=== PATIENT | female | born 1970 | race Caucasian/White ===

== ENCOUNTER → 2016-12-25 | Outpatient (CLI) | payer BC ==
--- NOTE | 2016-12-25 10:39 | KCIC ---
DATE: 12/25/2016 EXAM: MAMMO CHANO SCREENING BILATERAL HISTORY: Routine screening COMPARISON: 12/13/2015 This study was interpreted with the benefit of Computerized Aided Detection (CAD). The breast parenchyma is heterogeneously dense, which could reduce sensitivity of mammography. Breast parenchyma level C. FINDINGS: 2-D and 3-D tomosynthesis imaging was performed in CC and MLO projections. The fibroglandular pattern is heterogeneously dense in a somewhat nodular pattern. No new or enlarging breast densities are seen. Minimal benign type calcifications are present. No suspicious microcalcifications have developed. IMPRESSION: Stable mammograms without evidence of malignancy. BI-RADS CATEGORY: 2 BENIGN FINDING(S) RECOMMENDED FOLLOW-UP: 12M 12 MONTH FOLLOW-UP PQRS compliance statement: Patient information was entered into a reminder system with a target due date for the next mammogram. Mammography is a sensitive method for finding small breast cancers, but it does not detect them all and is not a substitute for careful clinical examination. A negative mammogram does not negate a clinically suspicious finding and should not result in delay in biopsying a clinically suspicious abnormality. "Our facility is accredited by the [employer] Mammography [employer]."
== END | disposition home or self-care (01) ==
LOC: KCIC MAMMO 08:03
PROVIDERS: ATTEND Obstetrics & Gynecology
DX: Z12.31 Encounter for screening mammogram for malignant neoplasm of breast (principal)
CPT/HCPCS: 77063; G0202; 77067

== ENCOUNTER → 2017-11-14 | Outpatient (CLI) | payer BC ==
--- NOTE | 2017-11-14 11:36 | RAD ---
DATE: 11/14/2017 EXAM: MAMMO CHANO VIDEO DYSPHASIA STUDY, RT, BREAST RIGHT HISTORY: Right breast nodule COMPARISON: 12/25/2016 This study was interpreted with the benefit of Computerized Aided Detection (CAD). Breast Density: HETERO The breast parenchyma is heterogenously dense, which could reduce sensitivity of mammography. Breast parenchyma level C. FINDINGS: There was reportedly a palpable area of concern in the inferior aspect of the right breast although the patient cannot currently pinpoint a lump. 2-D and 3-D tomosynthesis imaging was performed in CC and MLO projections. No new or enlarging breast densities are seen. No spiculated mass or architectural distortion is evident. No suspicious microcalcifications are seen. Right breast ultrasound, 11/14/2017: A targeted ultrasound exam of the inferior aspect of the right breast was performed centered at the 6:00 location. Heterogeneous fibroglandular shadows are present. No breast mass or unusual fluid collection is seen. IMPRESSION: 1. Stable right mammograms without evidence of malignancy. 2. The targeted ultrasound exam of the right breast reveal no abnormality. Clinical surveillance is suggested. BI-RADS CATEGORY: 1 NEGATIVE RECOMMENDED FOLLOW-UP: 12M 12 MONTH FOLLOW-UP PQRS compliance statement: Patient information was entered into a reminder system with a target due date for the next mammogram. Mammography is a sensitive method for finding small breast cancers, but it does not detect them all and is not a substitute for careful clinical examination. A negative mammogram does not negate a clinically suspicious finding and should not result in delay in biopsying a clinically suspicious abnormality. "Our facility is accredited by the [employer] Mammography [employer]."
== END | disposition home or self-care (01) ==
LOC: MAMMO 09:35
PROVIDERS: ATTEND Obstetrics & Gynecology
DX: R92.8 Other abnormal and inconclusive findings on diagnostic imaging of breast (principal)
CPT/HCPCS: 76641; 77065; G0279; 77061

== ENCOUNTER → 2017-12-31 | Outpatient (CLI) | payer BC ==
--- NOTE | 2017-12-31 17:35 | KCIC ---
Bilateral digital screening mammograms with 3-D tomosynthesis: Reason for examination: Routine screening. Comparison is made to previous studies dated back to 12/07/2014. Bilateral mammograms in CC and oblique projections were obtained with 2-D imaging and 3-D tomosynthesis imaging on a Siemens Inspiration unit and reviewed on the workstation. Interpretation was made with the benefit of CAD. The skin and nipples show no abnormalities. No abnormal axillary lymph nodes are seen. The breast parenchyma shows scattered fatty and fibroglandular density. (Breast density: Category B.) There appear to be 2 small nodular densities in the lower inner quadrant of the left breast at approximately the 7:30 B and 7:00 C positions. Recommend further evaluation with ultrasound. There are no other dominant masses, suspicious calcifications or architectural distortion. Impression: Small nodular densities at the 7:30 B and 7:00 C positions of the left breast. Recommend further evaluation with ultrasound. BI-RAD Category 0: Incomplete. Needs additional imaging evaluation. "Our facility is accredited by the [employer] Mammography [employer]." This patient's information has been entered into a reminder system for the patient to be notified with the results of her examination and a target date for the next mammogram. Electronically signed by: Lillian Romeo MD (12/31/2017 5:31 PM) [id number]
== END | disposition home or self-care (01) ==
LOC: KCIC MAMMO 11:33
PROVIDERS: ATTEND Obstetrics & Gynecology
DX: Z12.31 Encounter for screening mammogram for malignant neoplasm of breast (principal)
CPT/HCPCS: 77063; 77067

== ENCOUNTER → 2018-01-15 | Outpatient (CLI) | payer BC ==
--- NOTE | 2018-01-15 16:39 | KCIC ---
Left breast ultrasound: Reason for examination: Abnormal mammogram. Comparison is made to mammographic exam dated 12/31/2017. Ultrasound examination was performed in the area of mammographic concern inferiorly in the left breast and at the left axilla. At the 6:30 position 4 cm from the nipple, there is a 5.2 mm fibrocystic lesion. At the 6:00 position 4 cm from the nipple, there is a small 2.7 mm fibrocystic lesion. No other solid or suspicious-appearing nodules are seen. No abnormal appearing lymph nodes are seen in the axilla. IMPRESSION: Small benign-appearing fibrocystic lesions at the 6:00 and 6:30 positions. No suspicious lesion seen. Recommend 6 month follow-up with left breast mammograms and ultrasound. BI-RADS Category 3: Probably Benign. "Our facility is accredited by the [employer] Mammography [employer]." This patient's information has been entered into a reminder system for the patient to be notified with the results of her examination and a target date for the next mammogram. Electronically signed by: Lillian Romeo MD (01/15/2018 4:36 PM) [id number]
== END | disposition home or self-care (01) ==
LOC: KCIC US 08:06
PROVIDERS: ATTEND Obstetrics & Gynecology
DX: R92.8 Other abnormal and inconclusive findings on diagnostic imaging of breast (principal)
CPT/HCPCS: 76641

== ENCOUNTER → 2018-07-15 | Outpatient (CLI) | payer BC ==
--- NOTE | 2018-07-15 11:10 | KCIC ---
EXAM: Left breast diagnostic mammogram with tomosynthesis; left breast sonogram. HISTORY: 47-year-old female presents for short-term follow-up evaluation of suspected benign fibrous cystic lesions within the left breast demonstrated on a sonogram dated 01/15/2018. TECHNIQUE: Full-field digital craniocaudal and mediolateral oblique 2D and 3D tomosynthesis images of the left breast are obtained for evaluation. Computer aided detection with [employer] software version 9.3 was applied. Sonographic imaging of the left breast targeted to sites of prior findings was also performed. COMPARISON: Sonogram dated 01/15/2018 and mammograms dated 12/31/2017. BREAST PARENCHYMAL DENSITY: Level C - Heterogeneously dense. FINDINGS: There is no new suspicious mass, microcalcification or region of architectural distortion. Sonographic imaging of the left breast demonstrates no significant change in a 4.8 cm suspected cluster of cysts or complicated cyst at the 6:30 position 4 cm from the nipple or a lobulated cyst or benign fibrocystic lesion measuring 3.0 mm at the 6:00 position 4 cm from the nipple. No new lesion is seen. IMPRESSION: 1. Stable small suspected benign complicated cystic or fibrocystic lesions within the left breast at the 6:00 and 6:30 o'clock positions. There is no new suspicious sonographic or mammographic finding. 2. BI-RADS Category 2: Benign finding(s). RECOMMENDATION: The patient will be due for bilateral mammography in 5 months according to a previously established bilateral mammography interval. If your mammogram demonstrates that you have dense breast tissue, which could hide abnormalities, and if you have other risk factors for breast cancer that have been identified, you might benefit from supplemental screening tests that may be suggested by your ordering physician. Dense breast tissue, in and of itself, is a relatively common condition. This information is not provided to cause undue concern, but rather to raise your awareness and to promote discussion with your physician regarding the presence of other risk factors, in addition to dense breast tissue. A report of your mammography results will be sent to you and your physician. You should contact your physician if you have any questions or concerns regarding this report. Mammography is a sensitive method for finding small breast cancers, but it does not detect them all and is not a substitute for careful clinical examination. A negative mammogram does not negate a clinically suspicious finding and should not result in delay in biopsying a clinically suspicious abnormality. PQRS compliance statement - Patient information was entered into a reminder system with a target due date for the next mammogram. "Our facility is accredited by the [employer] Mammography Program." Electronically signed by: Kori Duran MD (07/15/2018 11:07 AM) [id number]
== END | disposition home or self-care (01) ==
LOC: KCIC MAMMO 10:05
PROVIDERS: ATTEND Obstetrics & Gynecology
DX: R92.8 Other abnormal and inconclusive findings on diagnostic imaging of breast (principal)
CPT/HCPCS: 76641; 77065; G0279; 77061

== ENCOUNTER → 2019-09-15 | Outpatient (CLI) | payer BC ==
--- NOTE | 2019-09-15 13:01 | KCIC ---
Bilateral digital screening mammograms and tomosynthesis Reason for examination: Routine screening. Comparison is made to previous study dated mammogram and breast ultrasound July 15, 2018 and prior studies Routine CC and MLO digital views obtained. Interpretation was made with the benefit of CAD. The skin and nipples show no abnormalities. No abnormal lymph nodes are seen. The breast parenchyma is scattered fibroglandular elements. (Breast density: Category B.) There are no suspicious masses, suspicious calcifications or architectural distortions. Decreased nodularity of the left inner lower breast since the prior study. Small asymmetry of the right outer breast on the CC view which is confirmed as a summation density of overlapping glandular tissue planes on the tomosynthesis images. Mild nodularity of the right lower breast posterior depth on MLO tomosynthesis stable. At the right inner lower breast 9 cm from the nipple on MLO tomosynthesis image 18 and CC tomosynthesis image 35 as well as on the MLO mammogram there is a small subcentimeter nodular asymmetry new from the prior studies. Impression: Small subcentimeter nodular asymmetry of the right inner lower breast 9 cm from the nipple. Further assessment with right breast ultrasound is advised. BI-RADS Category 0: Incomplete examination. "Our facility is accredited by the [employer] Mammography Program." This patient's information has been entered into a reminder system for the patient to be notified with the results of her examination and a target date for the next mammogram. Electronically signed by: Valerio Guzman MD (09/15/2019 12:57 PM) [email or web address]
== END | disposition home or self-care (01) ==
LOC: KCIC MAMMO 08:35
PROVIDERS: ATTEND Obstetrics & Gynecology
DX: Z12.31 Encounter for screening mammogram for malignant neoplasm of breast (principal); N64.89 Other specified disorders of breast
CPT/HCPCS: 77063; 77067

== ENCOUNTER → 2019-09-29 | Outpatient (CLI) | payer BC ==
--- NOTE | 2019-09-29 13:17 | KCIC ---
EXAM: Right breast sonogram. HISTORY: 49-year-old female presents for evaluation of nodularity within the right breast demonstrated on a mammogram dated 09/15/2019. TECHNIQUE: Sonographic imaging of the right breast targeted to the site of mammographic nodularity was performed. COMPARISON: 09/15/2019. FINDINGS: There is a 6 mm cluster of cysts at the 6:00 position 7 cm from the nipple. There is a similar 4 mm suspected complicated cyst or cluster of cysts at the 4:00 position 6 cm from nipple. There are dilated ducts within the retroareolar breast. No intraductal lesion is seen. There are benign axillary lymph nodes. IMPRESSION: 1. 6 mm cluster of cysts at the 6:00 position 7 cm from the nipple. This may correspond with nodularity within the right breast demonstrated inferiorly and medially on the prior mammogram, or be a separate lesion. There is a similar smaller lesion at the 4:00 position. No suspicious lesion is seen. 2. BI-RADS Category 3: Probably benign finding(s). Precautionary short-term follow-up with a right breast diagnostic mammogram in 6 months is recommended to confirm mammographic stability. Electronically signed by: Kori Duran MD (09/29/2019 1:14 PM) [email or web address]
== END | disposition home or self-care (01) ==
LOC: KCIC US 12:24
PROVIDERS: ATTEND Obstetrics & Gynecology
DX: N60.01 Solitary cyst of right breast (principal)
CPT/HCPCS: 76641

== ENCOUNTER → 2020-03-30 | Outpatient (CLI) | payer BC ==
--- NOTE | 2020-03-30 10:25 | RAD ---
EXAMINATION: MG DIGITAL UNILAT DIAGNOSTIC MAMMO WITH CHANO CLINICAL HISTORY: Six-month follow-up for focal asymmetry right lower inner quadrant TECHNIQUE: Digital craniocaudal and mediolateral oblique views of the right breast obtained with 3-D tomosynthesis and additional true lateral view of the right breast. COMPARISON: Right breast ultrasound 09/29/2019, Bilateral mammogram 09/15/2019 BREAST COMPOSITION: There are scattered areas of fibroglandular density. FINDINGS: Small asymmetry in the right lower inner quadrant appears essentially unchanged. No evidence of new s uspicious mass, calcifications, or areas of architectural distortion. IMPRESSION: Essentially unchanged small asymmetry right lower inner quadrant. BI-RADS ASSESSMENT: Category 3: Probably Benign RECOMMENDATION: Recommend follow-up bilateral mammogram with routine full-field views in 6 months for annual screenin g on the left and surveillance on the right. PQRS compliance statement - Patient information was entered into a reminder system with a target due date for the next mammogram. "Our facility is accredited by the [employer] Mammography Program." Electronically signed by: Rl Delgado DO (03/30/2020 10:23 AM) [email or web address]
== END ==
LOC: MAMMO 09:36
PROVIDERS: ATTEND Obstetrics & Gynecology
DX: R92.2 Inconclusive mammogram (principal)
CPT/HCPCS: 77065; G0279; 77061

== ENCOUNTER → 2020-09-07 | Outpatient (CLI) | payer BC, OTHER ==
--- NOTE | 2020-09-07 13:10 | RAD ---
MG DIGITAL BILAT DIAGNOSTIC MAMMO WITH CHANO 09/07/2020 12:22 PM INDICATION: Asymptomatic screening mammogram. COMPARISON: 03/22/2020, 09/15/2019, 07/15/2018, 12/31/2017 TECHNIQUE: 3D tomosynthesis was performed in CC and MLO projections. 2D views were obtained from the 3D data. CAD was utilized as needed. FINDINGS: Breast density: Category B: There are scattered areas of fibroglandular density. Right breast: There are no suspicious microcalcifications, masses or areas of architectural distortio n. Left breast: There are no suspicious microcalcifications, masses or areas of architectural distortion . Bilateral mammogram is compared to prior examinations appears unchanged. IMPRESSION: Negative bilateral mammogram. BI-RADS category: 1; Negative Recommendations: Recommend annual screening mammography in one year. Electronically signed by: Steffi Yu MD (09/07/2020 1:08 PM) [email or web address]
== END ==
LOC: MAMMO 12:16
PROVIDERS: ATTEND Obstetrics & Gynecology
DX: Z09 Encounter for follow-up examination after completed treatment for conditions other than malignant neoplasm (principal)
CPT/HCPCS: 77066; G0279; 77062